=== PATIENT | male | born 1940 | race Caucasian/White ===

== ENCOUNTER 2016-10-15 15:38 | Inpatient (IN) | payer MEDICARE ==
[~2016-10-15] VITALS: Ht 175.3 cm; Wt 53.6 kg
[2016-10-15] MEDS ORDERED: VITAD1000 PO (16:04)
[2016-10-15] MEDS ORDERED: AMLO-511 PO (16:04)
[2016-10-15] MEDS ORDERED: AMIO200T44 PO ×2 (16:04)
[2016-10-15] MEDS ORDERED: MEMA5 PO (16:04)
[2016-10-15] MEDS ORDERED: LISI-661 PO (16:04)
[2016-10-15] MEDS ORDERED: LORA1TAB3 PO (16:04)
[2016-10-15] MEDS ORDERED: PANT40TA25 PO (16:04)
[2016-10-15] MEDS ORDERED: ALBU8HFA IH (16:04)
[2016-10-15] MEDS ORDERED: SODIUM CHLORIDE 0.9% 500 ML IV ONE ×2 (16:15→17:45)
[2016-10-15 16:21] LABS: GLUCOSE,POINT OF CARE 93 MG/DL (70-110)
[2016-10-15 16:33] LABS: EOSINOPHILS % (AUTO) 0.1 % (1.0-6.0); HEMATOCRIT 30.5 % (41-53); LYMPHOCYTES # (AUTO) 0.6 K/uL (1.0-4.8); LYMPHOCYTES % (AUTO) 3.8 % (22.0-44.0); MEAN CORPUSCULAR HEMOGLOBIN 33.1 pg (26.0-34.0); MEAN CORPUSCULAR HGB CONC 32.7 G/dL (31.0-37.0); MEAN CORPUSCULAR VOLUME 101 fL (80-100); MONOCYTES # (AUTO) 0.9 K/uL (0.1-1.0); MONOCYTES % (AUTO) 5.6 % (2.0-9.0); NEUTROPHILS # (AUTO) 14.7 K/uL (1.8-7.7); PLATELET COUNT (AUTO) 180 K/uL (150-450); RED BLOOD CELL COUNT(AUTO) 3.01 MIL/uL (4.50-5.90); RED CELL DISTRIBUTION WIDTH 14.9 % (11.5-14.5); WHITE BLOOD COUNT (AUTO) 16.2 K/uL (4.5-11.0)
[2016-10-15 16:34] LABS: NEUTROPHILS % (AUTO) 90.5 % (40.0-70.0)
[2016-10-15 16:43] LABS: ANION GAP 11 mmol/L (8-16); CALCIUM, TOTAL 8.5 mg/dL (8.8-10.5); CARBON DIOXIDE 27 mmol/L (22-29); CHLORIDE 116 mmol/L (98-107); GLOMERULAR FILTR. RATE CALC 49 mL/min (>60); POTASSIUM 3.3 mmol/L (3.5-5.1); SODIUM SERUM 154 mmol/L (136-145); UREA NITROGEN, BLOOD 62 mg/dL (7-18)
[2016-10-15 16:48] LABS: ALANINE AMINOTRANSFERASE 34 U/L (12-78); ALBUMIN 2.1 g/dL (3.4-5.0); ASPARTATE AMINOTRANSFERASE 17 U/L (15-37); BILIRUBIN,TOTAL 1.3 mg/dL (0.1-1.0); CREATINE KINASE, TOTAL 33 U/L (39-308); TOTAL PROTEIN, SERUM 6.5 g/dL (6.4-8.2)
[2016-10-15 16:50] LABS: INR 1.1 (0.9-1.1); PROTHROMBIN TIME 11.4 SEC (9.4-11.6)
[2016-10-15 16:54] LABS: LACTIC ACID 1.1 mmol/L (0.4-2.0)
[2016-10-15 17:18] LABS: TROPONIN I < 0.02 ng/mL (0.00-0.05)
[2016-10-15 17:24] LABS: AMMONIA 24 umol/L (11-32)
[2016-10-15] MEDS ORDERED: POTASSIUM CHL 10 MEQ/WATER 50 ML IV ONE (17:45)
[2016-10-15 17:52] LABS: B-TYPE NATRIURETIC PEPTIDE 66 pg/mL (0-100)
[2016-10-15] MEDS ORDERED: AZITHROMYCIN 500 MG/NS 250 ML IV ONE (18:00)
[2016-10-15] MEDS ORDERED: CefTRIAXone 1 GM/DEXTROSE 50 ML IV ONE (18:00)
[2016-10-15 18:18] LABS: PHOSPHORUS 3.5 mg/dL (2.5-4.9)
[2016-10-15 19:07] LABS: RBC MORPHOLOGY COMMENT ABNORMAL RBC MORPH
[2016-10-15 19:15] LABS: APPEARANCE,URINE CLOUDY (CLEAR); GLUCOSE, URINE (UA) NEGATIVE (NEGATIVE); KETONES,URINE NEGATIVE (NEGATIVE); LEUKOCYTE ESTERASE ,URINE NEGATIVE (NEGATIVE); OCCULT BLOOD,URINE NEGATIVE (NEGATIVE); PH,URINE 5.5 (5.0-8.0); PROTEIN,URINE POS 1+ (NEGATIVE)
[2016-10-15 19:36] LABS: ADD UA MICROSCOPIC NO
[2016-10-15] MEDS ORDERED: SODIUM CHLORIDE 0.9% 1,000 ML IV ONE (20:15)
[2016-10-15] MEDS ORDERED: 0.9% SODIUM CHLORIDE 10 ML SYRINGE IVP PRN (20:15)
[2016-10-15] MEDS ORDERED: ACETAMINOPHEN 325 MG TABLET PO PRN (20:15)
[2016-10-15] MEDS: IPRATROPIUM BROMIDE 0.5 MG/2.5 ML NEB SOLUTION NEB SCH (22:36)
[2016-10-15] MEDS: ALBUTEROL SULFATE 2.5 MG/0.5 ML NEB SOLUTION NEB SCH (22:36)
[2016-10-16] MEDS: ALBUTEROL SULFATE 2.5 MG/0.5 ML NEB SOLUTION NEB SCH ×2 (03:38→07:22)
[2016-10-16] MEDS: IPRATROPIUM BROMIDE 0.5 MG/2.5 ML NEB SOLUTION NEB SCH ×2 (03:38→07:22)
[2016-10-16] MEDS: SODIUM CHLORIDE 0.9% 1,000 ML IV SCH (13:54)
[2016-10-16 18:00] VITALS: BP 135/69
[2016-10-16] MEDS ORDERED: ALBUTEROL SULFATE HFA 90 MCG/PUFF 8 GM INHALER IH PRN (18:00)
[2016-10-16] MEDS: CefTRIAXone 1 GM/DEXTROSE 50 ML IV SCH (18:46)
[2016-10-16 19:18] VITALS: BP 138/70
[2016-10-16] MEDS: LORazepam 1 MG TABLET PO SCH (21:50)
[2016-10-16] MEDS ORDERED: LEVOFLOXACIN 500 MG/D5% WATER 100 ML IV ONE (23:00)
[2016-10-16 23:28] VITALS: BP 127/65
[2016-10-17] MEDS: SODIUM CHLORIDE 0.9% 1,000 ML IV SCH (03:28)
[2016-10-17 04:55] VITALS: BP 122/66
[2016-10-17 07:35] VITALS: BP 120/60
[2016-10-17 08:34] LABS: HEMATOCRIT 27.9 % (41-53); HEMOGLOBIN 9.1 g/dL (13.5-17.5); MEAN CORPUSCULAR HEMOGLOBIN 33.2 pg (26.0-34.0); MEAN CORPUSCULAR HGB CONC 32.5 G/dL (31.0-37.0); MEAN CORPUSCULAR VOLUME 102 fL (80-100); PLATELET COUNT (AUTO) 183 K/uL (150-450); RED BLOOD CELL COUNT(AUTO) 2.74 MIL/uL (4.50-5.90); RED CELL DISTRIBUTION WIDTH 15.1 % (11.5-14.5); WHITE BLOOD COUNT (AUTO) 15.8 K/uL (4.5-11.0)
[2016-10-17 08:52] LABS: ALANINE AMINOTRANSFERASE 23 U/L (12-78); ALBUMIN 1.7 g/dL (3.4-5.0); ANION GAP 9 mmol/L (8-16); ASPARTATE AMINOTRANSFERASE 16 U/L (15-37); BILIRUBIN,TOTAL 0.7 mg/dL (0.1-1.0); CALCIUM, TOTAL 7.4 mg/dL (8.8-10.5); CARBON DIOXIDE 26 mmol/L (22-29); CHLORIDE 127 mmol/L (98-107); GLOMERULAR FILTR. RATE CALC > 60 mL/min (>60); PHOSPHORUS 2.6 mg/dL (2.5-4.9); POTASSIUM 3.5 mmol/L (3.5-5.1); TOTAL PROTEIN, SERUM 4.9 g/dL (6.4-8.2); UREA NITROGEN, BLOOD 31 mg/dL (7-18)
[2016-10-17] MEDS ORDERED: AmLODIPine BESYLATE 5 MG TABLET PO SCH (09:00)
[2016-10-17] MEDS ORDERED: LISINOPRIL 10 MG TABLET PO SCH (09:00)
[2016-10-17 09:01] LABS: SODIUM SERUM 162 mmol/L (136-145)
[2016-10-17] MEDS: LORazepam 1 MG TABLET PO SCH ×2 (09:04→21:01)
[2016-10-17] MEDS: CHOLECALCIFEROL (VIT D3) 1,000 UNITS TABLET PO SCH (09:05)
[2016-10-17] MEDS: PANTOPRAZOLE SODIUM 40 MG DR TABLET PO SCH (09:05)
[2016-10-17] MEDS: MEMANTINE HCL 5 MG TABLET PO SCH (09:05)
[2016-10-17] MEDS: ENOXAPARIN SODIUM 30 MG/0.3 ML PF SYRINGE SQ SCH (09:06)
[2016-10-17 09:49] LABS: BAND NEUTROPHILS % (MANUAL) 2 % (1-5); LYMPHOCYTES % (MANUAL) 8 % (22-44); RBC MORPHOLOGY COMMENT ABNORMAL RBC MORPH; TOTAL CELLS COUNTED 100
[2016-10-17 10:50] VITALS: BP 98/52
[2016-10-17 14:57] VITALS: BP 103/54
[2016-10-17] MEDS: DEXTROSE 5%-0.45% SODIUM CHL 1,000 ML IV SCH (17:29)
[2016-10-17] MEDS: ALBUMIN HUMAN 25%-25GM/100ML 100 ML IV SCH ×2 (17:34→22:10)
[2016-10-17 19:30] LABS: ANION GAP 7 mmol/L (8-16); CARBON DIOXIDE 28 mmol/L (22-29); CHLORIDE 123 mmol/L (98-107); CREATININE 1.06 mg/dL (0.60-1.30); GLOMERULAR FILTR. RATE CALC > 60 mL/min (>60); POTASSIUM 3.7 mmol/L (3.5-5.1); SODIUM SERUM 158 mmol/L (136-145); UREA NITROGEN, BLOOD 29 mg/dL (7-18)
[2016-10-17 19:35] VITALS: BP 110/57
[2016-10-17] MEDS: CefTRIAXone 1 GM/DEXTROSE 50 ML IV SCH (21:01)
[2016-10-18] VITALS: BP 139/66
[2016-10-18] MEDS: LEVOFLOXACIN 250 MG/D5% WATER 50 ML IV SCH ×2 (00:14→23:09)
[2016-10-18] MEDS: DEXTROSE 5%-0.45% SODIUM CHL 1,000 ML IV SCH ×3 (00:14→19:42)
[2016-10-18] MEDS: ALBUMIN HUMAN 25%-25GM/100ML 100 ML IV SCH ×4 (03:57→21:51)
[2016-10-18 04:42] VITALS: BP 118/76
[2016-10-18 07:26] VITALS: BP 144/65
[2016-10-18 08:31] LABS: ANION GAP 10 mmol/L (8-16); CALCIUM, TOTAL 7.9 mg/dL (8.8-10.5); CARBON DIOXIDE 26 mmol/L (22-29); CHLORIDE 121 mmol/L (98-107); PHOSPHORUS 2.8 mg/dL (2.5-4.9); POTASSIUM 3.2 mmol/L (3.5-5.1); SODIUM SERUM 157 mmol/L (136-145); UREA NITROGEN, BLOOD 23 mg/dL (7-18)
[2016-10-18] MEDS: PANTOPRAZOLE SODIUM 40 MG DR TABLET PO SCH (08:31)
[2016-10-18] MEDS: LORazepam 1 MG TABLET PO SCH ×2 (08:31→20:05)
[2016-10-18] MEDS: CHOLECALCIFEROL (VIT D3) 1,000 UNITS TABLET PO SCH (08:31)
[2016-10-18] MEDS: ENOXAPARIN SODIUM 30 MG/0.3 ML PF SYRINGE SQ SCH (08:31)
[2016-10-18] MEDS: MEMANTINE HCL 5 MG TABLET PO SCH (08:31)
[2016-10-18 08:51] LABS: CREATININE 0.94 mg/dL (0.60-1.30); GLOMERULAR FILTR. RATE CALC > 60 mL/min (>60)
[2016-10-18 12:16] VITALS: BP 146/68
[2016-10-18 15:26] VITALS: BP 143/71
[2016-10-18] MEDS: CefTRIAXone 1 GM/DEXTROSE 50 ML IV SCH (17:41)
[2016-10-18 19:50] VITALS: BP 123/63
[2016-10-19] VITALS (7 sets, daily range): BP systolic 112–136; BP diastolic 48–83
[2016-10-19] MEDS: ALBUMIN HUMAN 25%-25GM/100ML 100 ML IV SCH ×4 (03:39→21:26)
[2016-10-19 06:52] LABS: EOSINOPHILS # (AUTO) 0.09 K/uL (0.00-0.70); EOSINOPHILS % (AUTO) 0.75 % (1.0-6.0); HEMOGLOBIN 8.3 g/dL (13.5-17.5); LYMPHOCYTES # (AUTO) 0.9 K/uL (1.0-4.8); LYMPHOCYTES % (AUTO) 7.7 % (22.0-44.0); MEAN CORPUSCULAR HEMOGLOBIN 33.5 pg (26.0-34.0); MEAN CORPUSCULAR HGB CONC 33.4 G/dL (31.0-37.0); MEAN CORPUSCULAR VOLUME 100 fL (80-100); MONOCYTES # (AUTO) 0.6 K/uL (0.1-1.0); MONOCYTES % (AUTO) 4.9 % (2.0-9.0); NEUTROPHILS # (AUTO) 10.4 K/uL (1.8-7.7); PLATELET COUNT (AUTO) 162 K/uL (150-450); RED BLOOD CELL COUNT(AUTO) 2.49 MIL/uL (4.50-5.90); RED CELL DISTRIBUTION WIDTH 15.2 % (11.5-14.5); WHITE BLOOD COUNT (AUTO) 12.1 K/uL (4.5-11.0)
[2016-10-19 06:57] LABS: NEUTROPHILS % (AUTO) 86.6 % (40.0-70.0); RBC MORPHOLOGY COMMENT ABNORMAL RBC MORPH
[2016-10-19 07:04] LABS: ANION GAP 8 mmol/L (8-16); CALCIUM, TOTAL 7.6 mg/dL (8.8-10.5); CARBON DIOXIDE 27 mmol/L (22-29); CHLORIDE 115 mmol/L (98-107); GLOMERULAR FILTR. RATE CALC > 60 mL/min (>60); PHOSPHORUS 2.9 mg/dL (2.5-4.9); POTASSIUM 3.2 mmol/L (3.5-5.1); SODIUM SERUM 150 mmol/L (136-145); UREA NITROGEN, BLOOD 21 mg/dL (7-18)
[2016-10-19] MEDS ORDERED: MAGNESIUM SULFATE 1 GM in DEXTROSE 5%-WATER 50 ML IV ONE (08:00)
[2016-10-19] MEDS: LORazepam 1 MG TABLET PO SCH ×2 (09:00→20:21)
[2016-10-19] MEDS ORDERED: POTASSIUM CHLORIDE 20 MEQ ER TABLET PO PRN (09:30)
[2016-10-19] MEDS: CHOLECALCIFEROL (VIT D3) 1,000 UNITS TABLET PO SCH (11:22)
[2016-10-19] MEDS: PANTOPRAZOLE SODIUM 40 MG DR TABLET PO SCH (11:24)
[2016-10-19] MEDS: MEMANTINE HCL 5 MG TABLET PO SCH (11:24)
[2016-10-19] MEDS: ENOXAPARIN SODIUM 30 MG/0.3 ML PF SYRINGE SQ SCH (11:25)
[2016-10-19] MEDS: DEXTROSE 5%-0.45% SODIUM CHL 1,000 ML IV SCH (11:30)
[2016-10-19] MEDS ORDERED: POTASSIUM CHLORIDE 20 MEQ ER TABLET PO ONE (13:30)
[2016-10-19] MEDS: CefTRIAXone 1 GM/DEXTROSE 50 ML IV SCH (19:02)
[2016-10-19] MEDS ORDERED: 0.9% SODIUM CHLORIDE 10 ML SYRINGE IVP PRN (22:15)
[2016-10-19] MEDS: LEVOFLOXACIN 250 MG/D5% WATER 50 ML IV SCH (22:34)
[2016-10-20] MEDS: DEXTROSE 5%-0.45% SODIUM CHL 1,000 ML IV SCH ×4 (01:49→22:57)
[2016-10-20] MEDS: ALBUMIN HUMAN 25%-25GM/100ML 100 ML IV SCH ×2 (04:23→10:23)
[2016-10-20 04:45] VITALS: BP 120/66
[2016-10-20 07:23] LABS: ALANINE AMINOTRANSFERASE 20 U/L (12-78); ALBUMIN 4.3 g/dL (3.4-5.0); ANION GAP 10 mmol/L (8-16); ASPARTATE AMINOTRANSFERASE 21 U/L (15-37); BILIRUBIN,TOTAL 0.9 mg/dL (0.1-1.0); CALCIUM, TOTAL 8.3 mg/dL (8.8-10.5); CARBON DIOXIDE 26 mmol/L (22-29); CHLORIDE 111 mmol/L (98-107); CREATININE 0.89 mg/dL (0.60-1.30); GLOMERULAR FILTR. RATE CALC > 60 mL/min (>60); PHOSPHORUS 2.6 mg/dL (2.5-4.9); SODIUM SERUM 147 mmol/L (136-145); TOTAL PROTEIN, SERUM 6.9 g/dL (6.4-8.2); UREA NITROGEN, BLOOD 21 mg/dL (7-18)
[2016-10-20 07:47] VITALS: BP 124/65
[2016-10-20] MEDS: LORazepam 1 MG TABLET PO SCH ×2 (09:00→21:00)
[2016-10-20] MEDS: PANTOPRAZOLE SODIUM 40 MG DR TABLET PO SCH (10:17)
[2016-10-20] MEDS: CHOLECALCIFEROL (VIT D3) 1,000 UNITS TABLET PO SCH (10:17)
[2016-10-20] MEDS: MEMANTINE HCL 5 MG TABLET PO SCH (10:17)
[2016-10-20] MEDS: ENOXAPARIN SODIUM 30 MG/0.3 ML PF SYRINGE SQ SCH (10:20)
[2016-10-20 11:12] VITALS: BP 106/54
[2016-10-20 15:00] VITALS: BP 108/56
[2016-10-20] MEDS: CefTRIAXone 1 GM/DEXTROSE 50 ML IV SCH (18:32)
[2016-10-20 19:36] VITALS: BP 96/54
[2016-10-20] MEDS: LEVOFLOXACIN 250 MG/D5% WATER 50 ML IV SCH (23:40)
[2016-10-21 00:12] VITALS: BP 113/59
[2016-10-21 04:01] VITALS: BP 115/57
[2016-10-21 07:53] LABS: ANION GAP 10 mmol/L (8-16); CALCIUM, TOTAL 7.7 mg/dL (8.8-10.5); CARBON DIOXIDE 24 mmol/L (22-29); CHLORIDE 107 mmol/L (98-107); CREATININE 0.93 mg/dL (0.60-1.30); GLOMERULAR FILTR. RATE CALC > 60 mL/min (>60); PHOSPHORUS 2.7 mg/dL (2.5-4.9); SODIUM SERUM 141 mmol/L (136-145); UREA NITROGEN, BLOOD 20 mg/dL (7-18)
[2016-10-21 08:02] VITALS: BP 124/65
[2016-10-21] MEDS: DEXTROSE 5%-0.45% SODIUM CHL 1,000 ML IV SCH (10:10)
[2016-10-21] MEDS: CHOLECALCIFEROL (VIT D3) 1,000 UNITS TABLET PO SCH (10:11)
[2016-10-21] MEDS: MEMANTINE HCL 5 MG TABLET PO SCH (10:11)
[2016-10-21] MEDS: PANTOPRAZOLE SODIUM 40 MG DR TABLET PO SCH (10:11)
[2016-10-21] MEDS: LORazepam 1 MG TABLET PO SCH ×2 (10:11→21:04)
[2016-10-21] MEDS: ENOXAPARIN SODIUM 30 MG/0.3 ML PF SYRINGE SQ SCH (10:11)
[2016-10-21 16:31] VITALS: BP 103/63
[2016-10-21 20:24] VITALS: BP 133/66
[2016-10-22] VITALS (8 sets, daily range): BP systolic 88–122; BP diastolic 39–64
[2016-10-22] MEDS ORDERED: SODIUM CHLORIDE 0.9% 50 ML ONE (00:08)
[2016-10-22] MEDS: LEVOFLOXACIN 250 MG/D5% WATER 50 ML IV SCH ×2 (00:12→22:33)
[2016-10-22 07:20] LABS: EOSINOPHILS % (AUTO) 0.5 % (1.0-6.0); HEMATOCRIT 26.4 % (41-53); HEMOGLOBIN 8.8 g/dL (13.5-17.5); LYMPHOCYTES # (AUTO) 0.9 K/uL (1.0-4.8); MEAN CORPUSCULAR HGB CONC 33.1 G/dL (31.0-37.0); MEAN CORPUSCULAR VOLUME 100 fL (80-100); MONOCYTES # (AUTO) 0.8 K/uL (0.1-1.0); MONOCYTES % (AUTO) 7.2 % (2.0-9.0); NEUTROPHILS # (AUTO) 8.7 K/uL (1.8-7.7); NEUTROPHILS % (AUTO) 83.3 % (40.0-70.0); PLATELET COUNT (AUTO) 207 K/uL (150-450); RED BLOOD CELL COUNT(AUTO) 2.65 MIL/uL (4.50-5.90); WHITE BLOOD COUNT (AUTO) 10.5 K/uL (4.5-11.0)
[2016-10-22 07:36] LABS: ANION GAP 10 mmol/L (8-16); CALCIUM, TOTAL 7.8 mg/dL (8.8-10.5); CARBON DIOXIDE 25 mmol/L (22-29); CHLORIDE 106 mmol/L (98-107); CREATININE 1.02 mg/dL (0.60-1.30); GLOMERULAR FILTR. RATE CALC > 60 mL/min (>60); PHOSPHORUS 2.7 mg/dL (2.5-4.9); POTASSIUM 4.1 mmol/L (3.5-5.1); SODIUM SERUM 141 mmol/L (136-145); UREA NITROGEN, BLOOD 21 mg/dL (7-18)
[2016-10-22] MEDS: PANTOPRAZOLE SODIUM 40 MG DR TABLET PO SCH (09:37)
[2016-10-22] MEDS: LORazepam 1 MG TABLET PO SCH ×2 (09:38→20:30)
[2016-10-22] MEDS: CHOLECALCIFEROL (VIT D3) 1,000 UNITS TABLET PO SCH (09:38)
[2016-10-22] MEDS: ENOXAPARIN SODIUM 30 MG/0.3 ML PF SYRINGE SQ SCH (09:38)
[2016-10-22] MEDS: MEMANTINE HCL 5 MG TABLET PO SCH (09:38)
[2016-10-22] MEDS: IRON SUCROSE COMPLEX 100 MG in SODIUM CHLORIDE 0.9% 100 ML IV SCH (09:47)
[2016-10-22] MEDS ORDERED: IOVERSOL 320 MG/ML 100 ML VIAL ONE (17:36)
[2016-10-22] MEDS ORDERED: SODIUM CHLORIDE 0.9% 100 ML ONE (22:38)
[2016-10-23] VITALS (10 sets, daily range): BP systolic 102–136; BP diastolic 50–71
[2016-10-23 06:15] LABS: BASOPHILS % (AUTO) 0.2 % (0.0-2.0); EOSINOPHILS % (AUTO) 0.6 % (1.0-6.0); HEMATOCRIT 25.6 % (41-53); HEMOGLOBIN 8.5 g/dL (13.5-17.5); LYMPHOCYTES % (AUTO) 9.8 % (22.0-44.0); MEAN CORPUSCULAR HEMOGLOBIN 32.8 pg (26.0-34.0); MEAN CORPUSCULAR VOLUME 99 fL (80-100); MONOCYTES # (AUTO) 0.9 K/uL (0.1-1.0); MONOCYTES % (AUTO) 8.1 % (2.0-9.0); NEUTROPHILS # (AUTO) 8.7 K/uL (1.8-7.7); NEUTROPHILS % (AUTO) 81.3 % (40.0-70.0); PLATELET COUNT (AUTO) 219 K/uL (150-450); RED BLOOD CELL COUNT(AUTO) 2.58 MIL/uL (4.50-5.90); WHITE BLOOD COUNT (AUTO) 10.7 K/uL (4.5-11.0)
[2016-10-23 06:36] LABS: ALANINE AMINOTRANSFERASE 25 U/L (12-78); ALBUMIN 3.2 g/dL (3.4-5.0); ANION GAP 8 mmol/L (8-16); ASPARTATE AMINOTRANSFERASE 21 U/L (15-37); BILIRUBIN,TOTAL 0.5 mg/dL (0.1-1.0); CALCIUM, TOTAL 7.8 mg/dL (8.8-10.5); CARBON DIOXIDE 24 mmol/L (22-29); CHLORIDE 106 mmol/L (98-107); CREATININE 0.97 mg/dL (0.60-1.30); GLOMERULAR FILTR. RATE CALC > 60 mL/min (>60); POTASSIUM 3.8 mmol/L (3.5-5.1); SODIUM SERUM 138 mmol/L (136-145); TOTAL PROTEIN, SERUM 6.5 g/dL (6.4-8.2); UREA NITROGEN, BLOOD 20 mg/dL (7-18)
[2016-10-23] MEDS: LORazepam 1 MG TABLET PO SCH ×2 (09:00→20:36)
[2016-10-23] MEDS: ENOXAPARIN SODIUM 30 MG/0.3 ML PF SYRINGE SQ SCH (09:00)
[2016-10-23] MEDS: IRON SUCROSE COMPLEX 100 MG in SODIUM CHLORIDE 0.9% 100 ML IV SCH (09:32)
[2016-10-23] MEDS ORDERED: BARIUM SULFATE 0.1% SUSPENSION 450 ML BOTTLE ONE (10:53)
[2016-10-23 12:04] LABS: INR 1.1 (0.9-1.1)
[2016-10-23] MEDS ORDERED: IOVERSOL 350 MG/ML 100 ML VIAL ONE (13:50)
[2016-10-23] MEDS: MEMANTINE HCL 5 MG TABLET PO SCH (15:47)
[2016-10-23] MEDS: CHOLECALCIFEROL (VIT D3) 1,000 UNITS TABLET PO SCH (15:47)
[2016-10-23] MEDS: PANTOPRAZOLE SODIUM 40 MG DR TABLET PO SCH (15:47)
[2016-10-23] MEDS: LEVOFLOXACIN 250 MG/D5% WATER 50 ML IV SCH (23:17)
[2016-10-23] MEDS ORDERED: SODIUM CHLORIDE 0.9% 100 ML ONE (23:20)
[2016-10-24 04:03] VITALS: BP 131/63
[2016-10-24 07:19] VITALS: BP 111/61
[2016-10-24 07:23] LABS: BASOPHILS # (AUTO) 0.02 K/uL (0.00-0.20); BASOPHILS % (AUTO) 0.2 % (0.0-2.0); EOSINOPHILS # (AUTO) 0.04 K/uL (0.00-0.70); EOSINOPHILS % (AUTO) 0.38 % (1.0-6.0); HEMATOCRIT 25.2 % (41-53); HEMOGLOBIN 8.5 g/dL (13.5-17.5); LYMPHOCYTES # (AUTO) 0.7 K/uL (1.0-4.8); MEAN CORPUSCULAR HEMOGLOBIN 32.8 pg (26.0-34.0); MEAN CORPUSCULAR HGB CONC 33.7 G/dL (31.0-37.0); MEAN CORPUSCULAR VOLUME 97 fL (80-100); MONOCYTES # (AUTO) 0.8 K/uL (0.1-1.0); MONOCYTES % (AUTO) 8.9 % (2.0-9.0); NEUTROPHILS # (AUTO) 7.6 K/uL (1.8-7.7); NEUTROPHILS % (AUTO) 82.5 % (40.0-70.0); PLATELET COUNT (AUTO) 236 K/uL (150-450); RED BLOOD CELL COUNT(AUTO) 2.59 MIL/uL (4.50-5.90); RED CELL DISTRIBUTION WIDTH 13.3 % (11.5-14.5); WHITE BLOOD COUNT (AUTO) 9.2 K/uL (4.5-11.0)
[2016-10-24 07:32] LABS: ALANINE AMINOTRANSFERASE 26 U/L (12-78); ALBUMIN 3.1 g/dL (3.4-5.0); ANION GAP 12 mmol/L (8-16); ASPARTATE AMINOTRANSFERASE 18 U/L (15-37); BILIRUBIN,TOTAL 0.6 mg/dL (0.1-1.0); CALCIUM, TOTAL 8.6 mg/dL (8.8-10.5); CARBON DIOXIDE 23 mmol/L (22-29); CHLORIDE 104 mmol/L (98-107); CREATININE 0.94 mg/dL (0.60-1.30); GLOMERULAR FILTR. RATE CALC > 60 mL/min (>60); POTASSIUM 4.1 mmol/L (3.5-5.1); SODIUM SERUM 139 mmol/L (136-145); TOTAL PROTEIN, SERUM 6.9 g/dL (6.4-8.2); UREA NITROGEN, BLOOD 16 mg/dL (7-18)
[2016-10-24] MEDS ORDERED: SODIUM CHLORIDE 0.9% 100 ML ONE (08:29)
[2016-10-24] MEDS: IRON SUCROSE COMPLEX 100 MG in SODIUM CHLORIDE 0.9% 100 ML IV SCH (08:32)
[2016-10-24] MEDS: LORazepam 1 MG TABLET PO SCH ×2 (09:00→21:24)
[2016-10-24 10:58] VITALS: BP 106/53
[2016-10-24] MEDS ORDERED: BARIUM SULFATE 0.1% SUSPENSION 450 ML BOTTLE ONE (11:40)
[2016-10-24] MEDS ORDERED: IOVERSOL 350 MG/ML 150 ML VIAL ONE (11:41)
[2016-10-24] MEDS: MEMANTINE HCL 5 MG TABLET PO SCH (15:46)
[2016-10-24] MEDS: CHOLECALCIFEROL (VIT D3) 1,000 UNITS TABLET PO SCH (15:47)
[2016-10-24] MEDS: PANTOPRAZOLE SODIUM 40 MG DR TABLET PO SCH (15:47)
[2016-10-24 15:49] VITALS: BP 112/59
[2016-10-24 21:22] VITALS: BP 114/65
[2016-10-24] MEDS: LEVOFLOXACIN 250 MG/D5% WATER 50 ML IV SCH (23:57)
[2016-10-25] VITALS (7 sets, daily range): BP systolic 103–124; BP diastolic 52–72
[2016-10-25 07:12] LABS: TOTAL PROTEIN, SERUM 6.8 g/dL (6.4-8.2)
[2016-10-25] MEDS: CHOLECALCIFEROL (VIT D3) 1,000 UNITS TABLET PO SCH (08:25)
[2016-10-25] MEDS: MEMANTINE HCL 5 MG TABLET PO SCH (08:25)
[2016-10-25] MEDS: PANTOPRAZOLE SODIUM 40 MG DR TABLET PO SCH (08:25)
[2016-10-25] MEDS: LORazepam 1 MG TABLET PO SCH ×2 (08:25→20:33)
[2016-10-25] MEDS ORDERED: SODIUM BICARBONATE 50 MEQ/50 ML VIAL ONE (11:58)
[2016-10-25] MEDS ORDERED: LIDOCAINE HCL/PF 1% 30 ML VIAL ONE (11:58)
[2016-10-25 13:35] LABS: APPEARANCE,UNSPUN,BODY FLUID HAZY (CLEAR); COLOR,BODY FLUID YELLOW (LT YELLOW)
[2016-10-26] VITALS (12 sets, daily range): BP systolic 99–136; BP diastolic 44–74
[2016-10-26] MEDS: LEVOFLOXACIN 250 MG/D5% WATER 50 ML IV SCH ×2 (00:09→23:07)
[2016-10-26] MEDS: LORazepam 1 MG TABLET PO SCH ×2 (09:00→20:20)
[2016-10-26] MEDS ORDERED: MIDAZOLAM HCL 2 MG/2 ML VIAL ONE (10:43)
[2016-10-26] MEDS ORDERED: FentaNYL CITRATE-PF 100 MCG/2 ML VIAL ONE (10:43)
[2016-10-26] MEDS ORDERED: SODIUM BICARBONATE 50 MEQ/50 ML VIAL ONE (10:43)
[2016-10-26] MEDS ORDERED: LIDOCAINE HCL/PF 1% 30 ML VIAL ONE (10:44)
[2016-10-26] MEDS: CHOLECALCIFEROL (VIT D3) 1,000 UNITS TABLET PO SCH (13:14)
[2016-10-26] MEDS: PANTOPRAZOLE SODIUM 40 MG DR TABLET PO SCH (13:14)
[2016-10-26] MEDS: MEMANTINE HCL 5 MG TABLET PO SCH (13:14)
[2016-10-26 14:34] LABS: APPEARANCE,UNSPUN,BODY FLUID HAZY (CLEAR)
[2016-10-26 14:35] LABS: COLOR,BODY FLUID YELLOW (LT YELLOW)
[2016-10-26 14:40] LABS: BODY FLUID HCT 0.3 %
[2016-10-26] MEDS ORDERED: SODIUM CHLORIDE 0.9% 50 ML ONE (23:09)
[2016-10-27 00:03] VITALS: BP 128/62
[2016-10-27 00:09] LABS: TOTAL PROTEIN,BODY FLUID,REF 4.4 g/dL
[2016-10-27 07:21] VITALS: BP 140/67
[2016-10-27] MEDS: MEMANTINE HCL 5 MG TABLET PO SCH (08:29)
[2016-10-27] MEDS: CHOLECALCIFEROL (VIT D3) 1,000 UNITS TABLET PO SCH (08:29)
[2016-10-27] MEDS: PANTOPRAZOLE SODIUM 40 MG DR TABLET PO SCH (08:29)
[2016-10-27] MEDS: LORazepam 1 MG TABLET PO SCH ×2 (08:29→21:00)
[2016-10-27 11:04] VITALS: BP 111/59
[2016-10-27 15:09] VITALS: BP 114/61
[2016-10-27 20:13] VITALS: BP 127/67
[2016-10-27] MEDS: ACETAMINOPHEN 325 MG TABLET PO PRN (21:53)
[2016-10-27] MEDS ORDERED: SODIUM CHLORIDE 0.9% 250 ML IV ONE (22:07)
[2016-10-27] MEDS: PIPERACILLIN/TAZO 3.375 GM/D5W 50 ML IV SCH (22:08)
[2016-10-27 23:31] LABS: APPEARANCE,URINE CLEAR (CLEAR); GLUCOSE, URINE (UA) NEGATIVE (NEGATIVE); KETONES,URINE NEGATIVE (NEGATIVE); LEUKOCYTE ESTERASE ,URINE NEGATIVE (NEGATIVE); OCCULT BLOOD,URINE MODERATE (NEGATIVE); PH,URINE 6.5 (5.0-8.0); PROTEIN,URINE TRACE (NEGATIVE)
[2016-10-27 23:34] LABS: ADD UA MICROSCOPIC YES
[2016-10-27] MEDS: LEVOFLOXACIN 250 MG/D5% WATER 50 ML IV SCH (23:46)
[2016-10-28] VITALS (7 sets, daily range): BP systolic 100–126; BP diastolic 49–77
[2016-10-28 00:04] LABS: WBC,URINE 0-2 /HPF (0-5)
[2016-10-28] MEDS: PIPERACILLIN/TAZO 3.375 GM/D5W 50 ML IV SCH ×4 (04:35→20:44)
[2016-10-28] MEDS: LORazepam 1 MG TABLET PO SCH ×2 (09:00→20:44)
[2016-10-28] MEDS: CHOLECALCIFEROL (VIT D3) 1,000 UNITS TABLET PO SCH (09:23)
[2016-10-28] MEDS: MEMANTINE HCL 5 MG TABLET PO SCH (09:23)
[2016-10-28] MEDS: MULTIVITAMINS WITH MINERALS, THERAPEUTIC TABLET PO SCH (09:23)
[2016-10-28] MEDS: PANTOPRAZOLE SODIUM 40 MG DR TABLET PO SCH (12:29)
[2016-10-28] MEDS: LEVOFLOXACIN 250 MG/D5% WATER 50 ML IV SCH (22:40)
[2016-10-29] VITALS (7 sets, daily range): BP systolic 91–136; BP diastolic 49–76
[2016-10-29] MEDS: PIPERACILLIN/TAZO 3.375 GM/D5W 50 ML IV SCH (04:34)
[2016-10-29 07:58] LABS: CALCIUM, TOTAL 8.7 mg/dL (8.8-10.5); CREATININE 1.29 mg/dL (0.60-1.30); POTASSIUM 4.2 mmol/L (3.5-5.1)
[2016-10-29] MEDS: LORazepam 1 MG TABLET PO SCH ×2 (09:00→21:05)
[2016-10-29] MEDS ORDERED: IOVERSOL 320 MG/ML 100 ML VIAL ONE (10:29)
[2016-10-29 10:35] LABS: INR 1.1 (0.9-1.1); PROTHROMBIN TIME 11.2 SEC (9.4-11.6)
[2016-10-29] MEDS: PIPERACILLIN SODIUM/TAZOBACTAM 2.25 GM in DEXTROSE 5%-WATER 50 ML IV SCH ×3 (11:33→21:06)
[2016-10-29] MEDS: PANTOPRAZOLE SODIUM 40 MG DR TABLET PO SCH (17:13)
[2016-10-29] MEDS: MULTIVITAMINS WITH MINERALS, THERAPEUTIC TABLET PO SCH (17:13)
[2016-10-29] MEDS: CHOLECALCIFEROL (VIT D3) 1,000 UNITS TABLET PO SCH (17:14)
[2016-10-29] MEDS: MEMANTINE HCL 5 MG TABLET PO SCH (17:14)
[2016-10-29] MEDS: LEVOFLOXACIN 250 MG/D5% WATER 50 ML IV SCH (23:16)
[2016-10-29] MEDS: ACETAMINOPHEN 325 MG TABLET PO PRN (23:17)
[2016-10-30] MEDS ORDERED: SODIUM CHLORIDE 0.9% 250 ML IV ONE (00:22)
[2016-10-30 03:14] LABS: GLUCOSE, URINE (UA) NEGATIVE (NEGATIVE); KETONES,URINE NEGATIVE (NEGATIVE); LEUKOCYTE ESTERASE ,URINE NEGATIVE (NEGATIVE); OCCULT BLOOD,URINE SMALL (NEGATIVE); PROTEIN,URINE POS 1+ (NEGATIVE)
[2016-10-30 03:17] LABS: APPEARANCE,URINE SLIGHTLY CLOUDY (CLEAR)
[2016-10-30 03:25] LABS: URIC ACID CRYSTALS,URINE Moderate /LPF (None Seen); WBC,URINE 0-2 /HPF (0-5)
[2016-10-30 04:46] VITALS: BP 102/58
[2016-10-30] MEDS: PIPERACILLIN SODIUM/TAZOBACTAM 2.25 GM in DEXTROSE 5%-WATER 50 ML IV SCH ×4 (05:04→22:47)
[2016-10-30 07:19] VITALS: BP 145/73
[2016-10-30 08:11] LABS: CALCIUM, TOTAL 8.9 mg/dL (8.8-10.5); CREATININE 1.51 mg/dL (0.60-1.30); POTASSIUM 4.4 mmol/L (3.5-5.1)
[2016-10-30] MEDS: LORazepam 1 MG TABLET PO SCH ×2 (09:17→21:00)
[2016-10-30] MEDS: PANTOPRAZOLE SODIUM 40 MG DR TABLET PO SCH (09:18)
[2016-10-30] MEDS: MULTIVITAMINS WITH MINERALS, THERAPEUTIC TABLET PO SCH (09:18)
[2016-10-30] MEDS: MEMANTINE HCL 5 MG TABLET PO SCH (09:18)
[2016-10-30] MEDS: CHOLECALCIFEROL (VIT D3) 1,000 UNITS TABLET PO SCH (09:18)
[2016-10-30 11:56] VITALS: BP 102/52
[2016-10-30 16:08] VITALS: BP 107/47
[2016-10-30] MEDS: ACETAMINOPHEN 325 MG TABLET PO PRN (18:09)
[2016-10-30 19:58] VITALS: BP 91/56
[2016-10-30] MEDS: LEVOFLOXACIN 250 MG/D5% WATER 50 ML IV SCH (23:17)
[2016-10-31] VITALS (10 sets, daily range): BP systolic 93–120; BP diastolic 36–92
[2016-10-31] MEDS: PIPERACILLIN SODIUM/TAZOBACTAM 2.25 GM in DEXTROSE 5%-WATER 50 ML IV SCH ×4 (03:24→21:31)
[2016-10-31 06:45] LABS: CALCIUM, TOTAL 8.9 mg/dL (8.8-10.5); CREATININE 1.6 mg/dL (0.60-1.30); POTASSIUM 4.6 mmol/L (3.5-5.1)
[2016-10-31] MEDS ORDERED: POLYETHYLENE GLYCOL 3350 17 GM PACKET PO ONE (07:00)
[2016-10-31 07:36] LABS: BASOPHILS % (AUTO) 0.3 % (0.0-2.0); EOSINOPHILS % (AUTO) 0 % (1.0-6.0); HEMATOCRIT 28.6 % (41-53); HEMOGLOBIN 9.2 g/dL (13.5-17.5); LYMPHOCYTES # (AUTO) 1.8 K/uL (1.0-4.8); LYMPHOCYTES % (AUTO) 13.5 % (22.0-44.0); MEAN CORPUSCULAR HEMOGLOBIN 31.7 pg (26.0-34.0); MEAN CORPUSCULAR HGB CONC 32.3 G/dL (31.0-37.0); MEAN CORPUSCULAR VOLUME 98 fL (80-100); MONOCYTES % (AUTO) 7.6 % (2.0-9.0); NEUTROPHILS # (AUTO) 10.2 K/uL (1.8-7.7); NEUTROPHILS % (AUTO) 78.6 % (40.0-70.0); PLATELET COUNT (AUTO) 189 K/uL (150-450); RED BLOOD CELL COUNT(AUTO) 2.91 MIL/uL (4.50-5.90); RED CELL DISTRIBUTION WIDTH 13.8 % (11.5-14.5)
[2016-10-31 07:44] LABS: ALBUMIN 2.9 g/dL (3.4-5.0); BILIRUBIN,TOTAL 0.5 mg/dL (0.1-1.0); TOTAL PROTEIN, SERUM 7.6 g/dL (6.4-8.2)
[2016-10-31] MEDS ORDERED: AMIODARONE HCL 150 MG in DEXTROSE 5%-WATER 97 ML IV ONE (07:50)
[2016-10-31] MEDS ORDERED: AMIODARONE HCL 360 MG in DEXTROSE 5%-WATER 242.8 ML IV ONE (08:00)
[2016-10-31] MEDS ORDERED: DIGOXIN 250 MCG/ML 2 ML AMP IVP ONE ×2 (08:00→09:30)
[2016-10-31 08:46] LABS: MAGNESIUM 2.4 mg/dL (1.80-2.40)
[2016-10-31] MEDS: MEMANTINE HCL 5 MG TABLET PO SCH (09:00)
[2016-10-31] MEDS: LORazepam 1 MG TABLET PO SCH ×2 (09:00→20:25)
[2016-10-31] MEDS: MULTIVITAMINS WITH MINERALS, THERAPEUTIC TABLET PO SCH (09:00)
[2016-10-31] MEDS: CHOLECALCIFEROL (VIT D3) 1,000 UNITS TABLET PO SCH (09:00)
[2016-10-31] MEDS: PANTOPRAZOLE SODIUM 40 MG DR TABLET PO SCH (09:00)
[2016-10-31] MEDS ORDERED: AMIODARONE HCL 540 MG in DEXTROSE 5%-WATER 239.2 ML IV ONE (14:00)
[2016-10-31] MEDS: FERROUS SULFATE 325 MG EC TABLET PO SCH (18:16)
[2016-10-31] MEDS: OXYGEN THERAPY IH SCH (20:25)
[2016-10-31] MEDS ORDERED: 0.9% SODIUM CHLORIDE 5 ML NEB SOLUTION NEB ONE (21:25)
[2016-10-31] MEDS: ALBUTEROL SULFATE 2.5 MG/0.5 ML NEB SOLUTION NEB SCH (21:48)
[2016-10-31] MEDS: IPRATROPIUM BROMIDE 0.5 MG/2.5 ML NEB SOLUTION NEB SCH (21:49)
[2016-11-01] MEDS: PIPERACILLIN SODIUM/TAZOBACTAM 2.25 GM in DEXTROSE 5%-WATER 50 ML IV SCH ×4 (03:33→21:31)
[2016-11-01 04:00] VITALS: BP 108/48
[2016-11-01 06:30] LABS: BASOPHILS % (AUTO) 0.2 % (0.0-2.0); EOSINOPHILS % (AUTO) 0 % (1.0-6.0); HEMATOCRIT 29.2 % (41-53); HEMOGLOBIN 9.4 g/dL (13.5-17.5); LYMPHOCYTES # (AUTO) 1.2 K/uL (1.0-4.8); LYMPHOCYTES % (AUTO) 11.4 % (22.0-44.0); MEAN CORPUSCULAR HEMOGLOBIN 31.6 pg (26.0-34.0); MEAN CORPUSCULAR HGB CONC 32.1 G/dL (31.0-37.0); MEAN CORPUSCULAR VOLUME 98 fL (80-100); MONOCYTES # (AUTO) 0.9 K/uL (0.1-1.0); MONOCYTES % (AUTO) 8.6 % (2.0-9.0); NEUTROPHILS # (AUTO) 8.7 K/uL (1.8-7.7); NEUTROPHILS % (AUTO) 79.8 % (40.0-70.0); PLATELET COUNT (AUTO) 182 K/uL (150-450); RED BLOOD CELL COUNT(AUTO) 2.98 MIL/uL (4.50-5.90); RED CELL DISTRIBUTION WIDTH 14.1 % (11.5-14.5); WHITE BLOOD COUNT (AUTO) 10.9 K/uL (4.5-11.0)
[2016-11-01 06:57] LABS: ALBUMIN 2.6 g/dL (3.4-5.0); BILIRUBIN,TOTAL 0.5 mg/dL (0.1-1.0); CALCIUM, TOTAL 8.9 mg/dL (8.8-10.5); CREATININE 1.44 mg/dL (0.60-1.30); POTASSIUM 3.6 mmol/L (3.5-5.1); TOTAL PROTEIN, SERUM 7.6 g/dL (6.4-8.2)
[2016-11-01 07:16] VITALS: BP 97/51
[2016-11-01] MEDS: FERROUS SULFATE 325 MG EC TABLET PO SCH ×2 (08:00→18:00)
[2016-11-01] MEDS: MULTIVITAMINS WITH MINERALS, THERAPEUTIC TABLET PO SCH (08:37)
[2016-11-01] MEDS: MEMANTINE HCL 5 MG TABLET PO SCH (08:37)
[2016-11-01] MEDS: LORazepam 1 MG TABLET PO SCH ×2 (08:38→21:30)
[2016-11-01] MEDS: CHOLECALCIFEROL (VIT D3) 1,000 UNITS TABLET PO SCH (08:38)
[2016-11-01] MEDS: AMIODARONE HCL 750 MG in DEXTROSE 5%-WATER 485 ML IV SCH (08:42)
[2016-11-01] MEDS: OXYGEN THERAPY IH SCH ×2 (08:42→20:24)
[2016-11-01] MEDS: PANTOPRAZOLE SODIUM 40 MG DR TABLET PO SCH (08:49)
[2016-11-01] MEDS: IPRATROPIUM BROMIDE 0.5 MG/2.5 ML NEB SOLUTION NEB SCH ×4 (08:55→20:24)
[2016-11-01] MEDS: ALBUTEROL SULFATE 2.5 MG/0.5 ML NEB SOLUTION NEB SCH ×4 (08:55→20:23)
[2016-11-01 10:32] LABS: ABG BASE EXCESS -4.8 mmol/L (-2.0-3.0); ABG HCO3 20.9 mmol/L (22.0-26.0); TEMPERATURE, FAHRENHEIT, BG 98.1 FAHREN (96.0-98.6)
[2016-11-01 10:48] LABS: ABG A-A DIFF O2 172.6 mmHg (10-20.0); ABG OXYHEMOGLOBIN 81.7 % (94.0-100.0); ABG PCO2 30 mmHg (35-45); ABG PH 7.433 (7.35-7.450)
[2016-11-01 11:08] LABS: ALLEN TEST, BLOOD GAS Positive
[2016-11-01 11:18] VITALS: BP 107/43
[2016-11-01 13:09] LABS: ABG A-A DIFF O2 187.3 mmHg (10-20.0); ABG BASE EXCESS -2.1 mmol/L (-2.0-3.0); ABG HCO3 23.4 mmol/L (22.0-26.0); ABG PCO2 28 mmHg (35-45); ALLEN TEST, BLOOD GAS Positive; TEMPERATURE, FAHRENHEIT, BG 98.6 FAHREN (96.0-98.6)
[2016-11-01 13:10] LABS: IPAP, BG 16 cm H2O
[2016-11-01 15:41] VITALS: BP 144/49
[2016-11-01] MEDS: ACETAMINOPHEN 325 MG TABLET PO PRN (16:32)
[2016-11-01] MEDS ORDERED: DEXTROSE 50%-WATER 25 GM/50 ML SYRINGE IVP PRN (19:00)
[2016-11-01 19:51] VITALS: BP 97/57
[2016-11-01 23:44] VITALS: BP 115/57
[2016-11-02] MEDS: INSULIN REGULAR, HUMAN 100 UNITS/ML SQ PRN ×3 (00:42→17:41)
[2016-11-02] MEDS ORDERED: SODIUM CHLORIDE 0.9% 250 ML IV ONE (03:45)
[2016-11-02] MEDS: PIPERACILLIN SODIUM/TAZOBACTAM 2.25 GM in DEXTROSE 5%-WATER 50 ML IV SCH ×4 (03:48→22:28)
[2016-11-02 04:51] VITALS: BP 103/61
[2016-11-02] MEDS: LANSOPRAZOLE 30 MG SOLUBLE TABLET NG SCH (05:33)
[2016-11-02 07:46] VITALS: BP 113/55
[2016-11-02] MEDS: AMIODARONE HCL 750 MG in DEXTROSE 5%-WATER 485 ML IV SCH (08:00)
[2016-11-02] MEDS: ALBUTEROL SULFATE 2.5 MG/0.5 ML NEB SOLUTION NEB SCH ×4 (08:31→20:26)
[2016-11-02] MEDS: IPRATROPIUM BROMIDE 0.5 MG/2.5 ML NEB SOLUTION NEB SCH ×4 (08:31→20:26)
[2016-11-02] MEDS: OXYGEN THERAPY IH SCH ×2 (08:31→20:05)
[2016-11-02] MEDS ORDERED: AMIODARONE HCL 200 MG TABLET PO SCH (09:00)
[2016-11-02] MEDS: FERROUS SULFATE 300 MG/5 ML LIQUID UDCUP NG SCH ×2 (09:54→17:26)
[2016-11-02] MEDS: MULTIVITAMINS WITH MINERALS, THERAPEUTIC TABLET PO SCH (09:55)
[2016-11-02] MEDS: CHOLECALCIFEROL (VIT D3) 1,000 UNITS TABLET PO SCH (09:55)
[2016-11-02] MEDS: MEMANTINE HCL 5 MG TABLET PO SCH (09:55)
[2016-11-02] MEDS: LORazepam 1 MG TABLET PO SCH (09:55)
[2016-11-02] MEDS ORDERED: ACETAMINOPHEN 650 MG/20.3 ML SOLUTION UDCUP NG PRN (11:15)
[2016-11-02 12:03] VITALS: BP 114/60
[2016-11-02 16:51] VITALS: BP 101/53
[2016-11-02] MEDS: AMIODARONE HCL 200 MG TABLET NG SCH ×2 (17:26→20:05)
[2016-11-02 19:17] VITALS: BP 104/59
[2016-11-02] MEDS: LORazepam 1 MG TABLET NG SCH (20:05)
[2016-11-02 23:50] VITALS: BP 108/52
[2016-11-03] VITALS (17 sets, daily range): BP systolic 93–138; BP diastolic 46–98
[2016-11-03 01:57] LABS: GLUCOSE,POINT OF CARE 87 MG/DL (70-110)
[2016-11-03 02:41] LABS: GLUCOSE,POINT OF CARE 104 MG/DL (70-110)
[2016-11-03] MEDS: PIPERACILLIN SODIUM/TAZOBACTAM 2.25 GM in DEXTROSE 5%-WATER 50 ML IV SCH (03:40)
[2016-11-03] MEDS: LANSOPRAZOLE 30 MG SOLUBLE TABLET NG SCH (05:39)
[2016-11-03 07:05] LABS: HEMATOCRIT 23.8 % (41-53); HEMOGLOBIN 7.5 g/dL (13.5-17.5); MEAN CORPUSCULAR HEMOGLOBIN 30.5 pg (26.0-34.0); MEAN CORPUSCULAR HGB CONC 31.5 G/dL (31.0-37.0); MEAN CORPUSCULAR VOLUME 97 fL (80-100); PLATELET COUNT (AUTO) 165 K/uL (150-450); RED BLOOD CELL COUNT(AUTO) 2.46 MIL/uL (4.50-5.90); RED CELL DISTRIBUTION WIDTH 14.2 % (11.5-14.5)
[2016-11-03 07:22] LABS: WHITE BLOOD COUNT (AUTO) 21.5 K/uL (4.5-11.0)
[2016-11-03 07:38] LABS: ALANINE AMINOTRANSFERASE 21 U/L (12-78); ALBUMIN 2.1 g/dL (3.4-5.0); ANION GAP 6 mmol/L (8-16); ASPARTATE AMINOTRANSFERASE 29 U/L (15-37); BILIRUBIN,TOTAL 0.3 mg/dL (0.1-1.0); CALCIUM, TOTAL 8.5 mg/dL (8.8-10.5); CARBON DIOXIDE 29 mmol/L (22-29); CHLORIDE 106 mmol/L (98-107); CREATININE 0.94 mg/dL (0.60-1.30); GLOMERULAR FILTR. RATE CALC > 60 mL/min (>60); SODIUM SERUM 141 mmol/L (136-145); TOTAL PROTEIN, SERUM 6.5 g/dL (6.4-8.2); UREA NITROGEN, BLOOD 30 mg/dL (7-18)
[2016-11-03 08:06] LABS: BAND NEUTROPHILS % (MANUAL) 3 % (1-5); LYMPHOCYTES % (MANUAL) 19 % (22-44); TOTAL CELLS COUNTED 100
[2016-11-03 08:07] LABS: RBC MORPHOLOGY COMMENT NORMAL RBC MORPH
[2016-11-03] MEDS: OXYGEN THERAPY IH SCH ×2 (08:52→20:34)
[2016-11-03] MEDS: LORazepam 1 MG TABLET NG SCH ×2 (09:00→21:00)
[2016-11-03] MEDS: AMIODARONE HCL 200 MG TABLET NG SCH ×2 (09:00→21:00)
[2016-11-03] MEDS: ALBUTEROL SULFATE 2.5 MG/0.5 ML NEB SOLUTION NEB SCH ×4 (09:00→20:34)
[2016-11-03] MEDS: IPRATROPIUM BROMIDE 0.5 MG/2.5 ML NEB SOLUTION NEB SCH ×4 (09:00→20:34)
[2016-11-03] MEDS ORDERED: FUROSEMIDE 20 MG/2 ML VIAL IVP ONE (09:30)
[2016-11-03] MEDS: FERROUS SULFATE 300 MG/5 ML LIQUID UDCUP NG SCH ×2 (10:13→18:13)
[2016-11-03] MEDS: MULTIVITAMINS WITH MINERALS, THERAPEUTIC 15 ML UDCUP NG SCH (10:14)
[2016-11-03] MEDS: MEMANTINE HCL 5 MG TABLET NG SCH (10:15)
[2016-11-03] MEDS: CHOLECALCIFEROL (VIT D3) 1,000 UNITS TABLET NG SCH (10:16)
[2016-11-03] MEDS: PIPERACILLIN/TAZO 3.375 GM/D5W 50 ML IV SCH ×3 (10:41→22:24)
[2016-11-03] MEDS ORDERED: SODIUM CHLORIDE 0.9% 250 ML IV ONE ×2 (11:19→17:41)
[2016-11-03] MEDS ORDERED: AMIODARONE HCL 200 MG TABLET PO ONE (13:30)
[2016-11-03] MEDS ORDERED: PEG 3350/NA SULF,BICARB,CL/KCL 4000 ML SOLUTION NG ONE (16:00)
[2016-11-04] MEDS: PIPERACILLIN/TAZO 3.375 GM/D5W 50 ML IV SCH ×4 (03:42→21:17)
[2016-11-04 05:30] VITALS: BP 124/65
[2016-11-04] MEDS: LANSOPRAZOLE 30 MG SOLUBLE TABLET NG SCH (05:58)
[2016-11-04 06:56] LABS: BASOPHILS % (AUTO) 0.2 % (0.0-2.0); EOSINOPHILS % (AUTO) 1.3 % (1.0-6.0); HEMATOCRIT 33.5 % (41-53); LYMPHOCYTES # (AUTO) 0.9 K/uL (1.0-4.8); LYMPHOCYTES % (AUTO) 12.7 % (22.0-44.0); MEAN CORPUSCULAR HEMOGLOBIN 30.3 pg (26.0-34.0); MEAN CORPUSCULAR HGB CONC 32.9 G/dL (31.0-37.0); MEAN CORPUSCULAR VOLUME 92 fL (80-100); MONOCYTES # (AUTO) 0.8 K/uL (0.1-1.0); MONOCYTES % (AUTO) 11.5 % (2.0-9.0); NEUTROPHILS # (AUTO) 5.4 K/uL (1.8-7.7); NEUTROPHILS % (AUTO) 74.3 % (40.0-70.0); PLATELET COUNT (AUTO) 181 K/uL (150-450); RED BLOOD CELL COUNT(AUTO) 3.64 MIL/uL (4.50-5.90); RED CELL DISTRIBUTION WIDTH 19.2 % (11.5-14.5); WHITE BLOOD COUNT (AUTO) 7.3 K/uL (4.5-11.0)
[2016-11-04 07:20] VITALS: BP 118/60
[2016-11-04] MEDS ORDERED: SODIUM CHLORIDE 0.9% 1,000 ML IV ONE ×2 (07:21→08:00)
[2016-11-04] MEDS: OXYGEN THERAPY IH SCH ×2 (07:56→21:16)
[2016-11-04 08:32] LABS: GLUCOSE,POINT OF CARE 97 MG/DL (70-110)
[2016-11-04] MEDS: ALBUTEROL SULFATE 2.5 MG/0.5 ML NEB SOLUTION NEB SCH ×4 (08:34→21:55)
[2016-11-04] MEDS: IPRATROPIUM BROMIDE 0.5 MG/2.5 ML NEB SOLUTION NEB SCH ×4 (08:34→21:55)
[2016-11-04 08:45] LABS: RBC MORPHOLOGY COMMENT ABNORMAL RBC MORPH
[2016-11-04] MEDS: LORazepam 1 MG TABLET NG SCH ×2 (09:00→21:16)
[2016-11-04] MEDS: AMIODARONE HCL 200 MG TABLET NG SCH ×2 (09:00→21:00)
[2016-11-04 10:48] VITALS: BP 115/63
[2016-11-04 12:00] VITALS: BP 110/60
[2016-11-04] MEDS: CHOLECALCIFEROL (VIT D3) 1,000 UNITS TABLET NG SCH (13:37)
[2016-11-04] MEDS: MEMANTINE HCL 5 MG TABLET NG SCH (13:37)
[2016-11-04] MEDS: MULTIVITAMINS WITH MINERALS, THERAPEUTIC 15 ML UDCUP NG SCH (13:37)
[2016-11-04] MEDS: FERROUS SULFATE 300 MG/5 ML LIQUID UDCUP NG SCH ×2 (13:37→17:52)
[2016-11-04 16:02] VITALS: BP 116/56
[2016-11-04 19:26] VITALS: BP 158/84
[2016-11-04] MEDS ORDERED: PROPOFOL 1% 20 ML VIAL IVP ONE (21:11)
[2016-11-04] MEDS ORDERED: LIDOCAINE HCL/PF 2% 5 ML VIAL IM ONE (21:11)
[2016-11-05] VITALS: BP 113/79
[2016-11-05 04:36] VITALS: BP 101/57
[2016-11-05] MEDS: PIPERACILLIN/TAZO 3.375 GM/D5W 50 ML IV SCH ×4 (04:54→21:33)
[2016-11-05] MEDS: LANSOPRAZOLE 30 MG SOLUBLE TABLET NG SCH (06:30)
[2016-11-05 07:47] VITALS: BP 115/53
[2016-11-05] MEDS: FERROUS SULFATE 300 MG/5 ML LIQUID UDCUP NG SCH ×2 (08:00→18:39)
[2016-11-05] MEDS: LORazepam 1 MG TABLET NG SCH ×2 (08:57→20:43)
[2016-11-05] MEDS: AMIODARONE HCL 200 MG TABLET NG SCH (08:58)
[2016-11-05] MEDS: MULTIVITAMINS WITH MINERALS, THERAPEUTIC 15 ML UDCUP NG SCH (08:58)
[2016-11-05] MEDS: MEMANTINE HCL 5 MG TABLET NG SCH (08:58)
[2016-11-05] MEDS: CHOLECALCIFEROL (VIT D3) 1,000 UNITS TABLET NG SCH (08:58)
[2016-11-05] MEDS ORDERED: SODIUM CHLORIDE 0.9% 250 ML IV ONE (09:02)
[2016-11-05] MEDS: OXYGEN THERAPY IH SCH ×2 (09:08→21:12)
[2016-11-05] MEDS: ALBUTEROL SULFATE 2.5 MG/0.5 ML NEB SOLUTION NEB SCH ×4 (09:31→21:12)
[2016-11-05] MEDS: IPRATROPIUM BROMIDE 0.5 MG/2.5 ML NEB SOLUTION NEB SCH ×4 (09:31→21:12)
[2016-11-05] MEDS ORDERED: SODIUM CHLORIDE 0.9% 1,000 ML IV ONE (11:26)
[2016-11-05] MEDS ORDERED: HYDROmorphone 2 MG/ML SYRINGE IVP PRN (12:45)
[2016-11-05] MEDS ORDERED: MEPERIDINE-PF 25 MG/ML SYRINGE IVP PRN (12:45)
[2016-11-05] MEDS ORDERED: FentaNYL CITRATE-PF 100 MCG/2 ML VIAL IVP PRN (12:45)
[2016-11-05 13:52] VITALS: BP 125/63
[2016-11-05 17:13] VITALS: BP 114/57
[2016-11-05 19:38] VITALS: BP 136/69
[2016-11-05] MEDS ORDERED: LIDOCAINE HCL/PF 2% 5 ML VIAL IM ONE (20:55)
[2016-11-05] MEDS ORDERED: PROPOFOL 1% 20 ML VIAL IVP ONE (20:55)
[2016-11-06] VITALS (7 sets, daily range): BP systolic 112–153; BP diastolic 52–93
[2016-11-06] MEDS: PIPERACILLIN/TAZO 3.375 GM/D5W 50 ML IV SCH ×4 (04:24→21:20)
[2016-11-06] MEDS: LANSOPRAZOLE 30 MG SOLUBLE TABLET NG SCH (05:56)
[2016-11-06 06:12] LABS: ALANINE AMINOTRANSFERASE 16 U/L (12-78); ALBUMIN 1.8 g/dL (3.4-5.0); ANION GAP 9 mmol/L (8-16); ASPARTATE AMINOTRANSFERASE 17 U/L (15-37); BILIRUBIN,TOTAL 0.6 mg/dL (0.1-1.0); CALCIUM, TOTAL 8.1 mg/dL (8.8-10.5); CARBON DIOXIDE 24 mmol/L (22-29); CHLORIDE 110 mmol/L (98-107); CREATININE 0.83 mg/dL (0.60-1.30); GLOMERULAR FILTR. RATE CALC > 60 mL/min (>60); POTASSIUM 3.9 mmol/L (3.5-5.1); SODIUM SERUM 143 mmol/L (136-145); UREA NITROGEN, BLOOD 22 mg/dL (7-18)
[2016-11-06 06:46] LABS: BASOPHILS % (AUTO) 0.3 % (0.0-2.0); EOSINOPHILS % (AUTO) 1.3 % (1.0-6.0); HEMATOCRIT 29.2 % (41-53); HEMOGLOBIN 9.5 g/dL (13.5-17.5); LYMPHOCYTES # (AUTO) 1.1 K/uL (1.0-4.8); LYMPHOCYTES % (AUTO) 12.8 % (22.0-44.0); MEAN CORPUSCULAR HEMOGLOBIN 30.3 pg (26.0-34.0); MEAN CORPUSCULAR HGB CONC 32.7 G/dL (31.0-37.0); MEAN CORPUSCULAR VOLUME 93 fL (80-100); MONOCYTES # (AUTO) 0.7 K/uL (0.1-1.0); MONOCYTES % (AUTO) 7.8 % (2.0-9.0); NEUTROPHILS # (AUTO) 6.7 K/uL (1.8-7.7); NEUTROPHILS % (AUTO) 77.8 % (40.0-70.0); PLATELET COUNT (AUTO) 174 K/uL (150-450); RED BLOOD CELL COUNT(AUTO) 3.15 MIL/uL (4.50-5.90); RED CELL DISTRIBUTION WIDTH 18.3 % (11.5-14.5); WHITE BLOOD COUNT (AUTO) 8.6 K/uL (4.5-11.0)
[2016-11-06] MEDS: FERROUS SULFATE 300 MG/5 ML LIQUID UDCUP NG SCH ×2 (07:51→18:00)
[2016-11-06] MEDS: MEMANTINE HCL 5 MG TABLET NG SCH (07:51)
[2016-11-06] MEDS: MULTIVITAMINS WITH MINERALS, THERAPEUTIC 15 ML UDCUP NG SCH (07:51)
[2016-11-06] MEDS: ALBUTEROL SULFATE 2.5 MG/0.5 ML NEB SOLUTION NEB SCH ×4 (07:55→20:16)
[2016-11-06] MEDS: IPRATROPIUM BROMIDE 0.5 MG/2.5 ML NEB SOLUTION NEB SCH ×4 (07:55→20:16)
[2016-11-06] MEDS: POVIDONE-IODINE 10% 120 ML SOLUTION TP SCH (07:57)
[2016-11-06] MEDS: HYDROGEN PEROXIDE 473 ML SOLUTION TP SCH (07:57)
[2016-11-06] MEDS: LORazepam 1 MG TABLET NG SCH ×2 (07:57→20:53)
[2016-11-06] MEDS: CHOLECALCIFEROL (VIT D3) 1,000 UNITS TABLET NG SCH (07:57)
[2016-11-06] MEDS: AMIODARONE HCL 200 MG TABLET NG SCH (07:58)
[2016-11-06] MEDS: OXYGEN THERAPY IH SCH ×2 (07:59→20:00)
[2016-11-06] MEDS ORDERED: HYDROGEN PEROXIDE 473 ML SOLUTION TP SCH (09:00)
[2016-11-06] MEDS ORDERED: POVIDONE-IODINE 10% 120 ML SOLUTION TP SCH (09:00)
[2016-11-06 12:25] LABS: RBC MORPHOLOGY COMMENT ABNORMAL RBC MORPH
[2016-11-07] MEDS: PIPERACILLIN/TAZO 3.375 GM/D5W 50 ML IV SCH ×4 (03:43→22:47)
[2016-11-07 04:00] VITALS: BP 126/64
[2016-11-07] MEDS: LANSOPRAZOLE 30 MG SOLUBLE TABLET NG SCH (06:29)
[2016-11-07 07:25] VITALS: BP 124/66
[2016-11-07] MEDS: IPRATROPIUM BROMIDE 0.5 MG/2.5 ML NEB SOLUTION NEB SCH ×4 (07:49→20:21)
[2016-11-07] MEDS: ALBUTEROL SULFATE 2.5 MG/0.5 ML NEB SOLUTION NEB SCH ×4 (07:49→20:21)
[2016-11-07] MEDS: MEMANTINE HCL 5 MG TABLET NG SCH (08:57)
[2016-11-07] MEDS: LORazepam 1 MG TABLET NG SCH ×2 (08:57→21:05)
[2016-11-07] MEDS: FERROUS SULFATE 300 MG/5 ML LIQUID UDCUP NG SCH ×2 (08:58→17:27)
[2016-11-07] MEDS: CHOLECALCIFEROL (VIT D3) 1,000 UNITS TABLET NG SCH (08:58)
[2016-11-07] MEDS: MULTIVITAMINS WITH MINERALS, THERAPEUTIC 15 ML UDCUP NG SCH (08:58)
[2016-11-07] MEDS: OXYGEN THERAPY IH SCH ×2 (08:59→20:00)
[2016-11-07] MEDS: AMIODARONE HCL 200 MG TABLET NG SCH (08:59)
[2016-11-07 11:47] VITALS: BP 112/60
[2016-11-07] MEDS: POVIDONE-IODINE 10% 120 ML SOLUTION TP SCH (12:30)
[2016-11-07] MEDS: HYDROGEN PEROXIDE 473 ML SOLUTION TP SCH (12:34)
[2016-11-07 15:55] VITALS: BP 126/65
[2016-11-07 19:16] VITALS: BP 128/73
[2016-11-07 23:40] VITALS: BP 132/81
[2016-11-08] MEDS: PIPERACILLIN/TAZO 3.375 GM/D5W 50 ML IV SCH ×4 (04:21→20:28)
[2016-11-08 04:26] LABS: GLUCOSE,POINT OF CARE 153 MG/DL (70-110)
[2016-11-08 04:32] LABS: GLUCOSE,POINT OF CARE 140 MG/DL (70-110)
[2016-11-08 04:32] LABS: GLUCOSE,POINT OF CARE 117 MG/DL (70-110)
[2016-11-08 04:32] LABS: GLUCOSE,POINT OF CARE 109 MG/DL (70-110)
[2016-11-08 04:32] LABS: GLUCOSE,POINT OF CARE 75 MG/DL (70-110)
[2016-11-08 04:32] LABS: GLUCOSE,POINT OF CARE 86 MG/DL (70-110)
[2016-11-08 04:32] LABS: GLUCOSE,POINT OF CARE 121 MG/DL (70-110)
[2016-11-08 04:32] LABS: GLUCOSE COMMENT 1 Received Meds; GLUCOSE,POINT OF CARE 76 MG/DL (70-110)
[2016-11-08 04:37] LABS: GLUCOSE,POINT OF CARE 89 MG/DL (70-110)
[2016-11-08 04:38] LABS: GLUCOSE COMMENT 1 Received Meds; GLUCOSE,POINT OF CARE 148 MG/DL (70-110)
[2016-11-08 04:38] LABS: GLUCOSE,POINT OF CARE 83 MG/DL (70-110)
[2016-11-08 04:38] LABS: GLUCOSE,POINT OF CARE 120 MG/DL (70-110)
[2016-11-08 04:38] LABS: GLUCOSE,POINT OF CARE 118 MG/DL (70-110)
[2016-11-08 04:38] LABS: GLUCOSE,POINT OF CARE 97 MG/DL (70-110)
[2016-11-08 04:38] LABS: GLUCOSE,POINT OF CARE 156 MG/DL (70-110)
[2016-11-08 04:38] LABS: GLUCOSE,POINT OF CARE 81 MG/DL (70-110)
[2016-11-08 04:38] LABS: GLUCOSE,POINT OF CARE 72 MG/DL (70-110)
[2016-11-08 04:38] LABS: GLUCOSE,POINT OF CARE 69 MG/DL (70-110)
[2016-11-08 04:42] LABS: GLUCOSE,POINT OF CARE 116 MG/DL (70-110)
[2016-11-08 04:42] LABS: GLUCOSE,POINT OF CARE 103 MG/DL (70-110)
[2016-11-08 04:45] VITALS: BP 130/79
[2016-11-08] MEDS: LANSOPRAZOLE 30 MG SOLUBLE TABLET NG SCH (05:58)
[2016-11-08 07:45] VITALS: BP 137/69
[2016-11-08] MEDS: OXYGEN THERAPY IH SCH ×2 (08:28→20:27)
[2016-11-08] MEDS: MULTIVITAMINS WITH MINERALS, THERAPEUTIC 15 ML UDCUP NG SCH (08:28)
[2016-11-08] MEDS: LORazepam 1 MG TABLET NG SCH ×2 (08:28→20:28)
[2016-11-08] MEDS: FERROUS SULFATE 300 MG/5 ML LIQUID UDCUP NG SCH ×2 (08:28→17:07)
[2016-11-08] MEDS: MEMANTINE HCL 5 MG TABLET NG SCH (08:28)
[2016-11-08] MEDS: AMIODARONE HCL 200 MG TABLET NG SCH (08:28)
[2016-11-08] MEDS: CHOLECALCIFEROL (VIT D3) 1,000 UNITS TABLET NG SCH (08:28)
[2016-11-08] MEDS: POVIDONE-IODINE 10% 120 ML SOLUTION TP SCH (08:29)
[2016-11-08] MEDS: HYDROGEN PEROXIDE 473 ML SOLUTION TP SCH (08:29)
[2016-11-08] MEDS: ALBUTEROL SULFATE 2.5 MG/0.5 ML NEB SOLUTION NEB SCH ×4 (08:41→21:10)
[2016-11-08] MEDS: IPRATROPIUM BROMIDE 0.5 MG/2.5 ML NEB SOLUTION NEB SCH ×4 (08:41→21:10)
[2016-11-08 12:07] VITALS: BP 136/61
[2016-11-08] MEDS ORDERED: SODIUM CHLORIDE 0.9% 250 ML IV ONE (15:38)
[2016-11-08 15:55] VITALS: BP 140/78
[2016-11-08 20:02] VITALS: BP 153/58
[2016-11-08 23:32] VITALS: BP 121/75
[2016-11-09] MEDS: PIPERACILLIN/TAZO 3.375 GM/D5W 50 ML IV SCH ×4 (04:15→22:25)
[2016-11-09 04:20] VITALS: BP 130/74
[2016-11-09] MEDS: LANSOPRAZOLE 30 MG SOLUBLE TABLET NG SCH (06:30)
[2016-11-09 07:25] VITALS: BP 145/78
[2016-11-09] MEDS: MEMANTINE HCL 5 MG TABLET NG SCH (09:04)
[2016-11-09] MEDS: LORazepam 1 MG TABLET NG SCH ×2 (09:04→20:05)
[2016-11-09] MEDS: MULTIVITAMINS WITH MINERALS, THERAPEUTIC 15 ML UDCUP NG SCH (09:04)
[2016-11-09] MEDS: POVIDONE-IODINE 10% 120 ML SOLUTION TP SCH (09:04)
[2016-11-09] MEDS: FERROUS SULFATE 300 MG/5 ML LIQUID UDCUP NG SCH ×2 (09:04→18:02)
[2016-11-09] MEDS: HYDROGEN PEROXIDE 473 ML SOLUTION TP SCH (09:04)
[2016-11-09] MEDS: AMIODARONE HCL 200 MG TABLET NG SCH (09:04)
[2016-11-09] MEDS: OXYGEN THERAPY IH SCH ×2 (09:04→20:05)
[2016-11-09] MEDS: CHOLECALCIFEROL (VIT D3) 1,000 UNITS TABLET NG SCH (09:04)
[2016-11-09] MEDS: ALBUTEROL SULFATE 2.5 MG/0.5 ML NEB SOLUTION NEB SCH ×4 (09:31→20:28)
[2016-11-09] MEDS: IPRATROPIUM BROMIDE 0.5 MG/2.5 ML NEB SOLUTION NEB SCH ×4 (09:31→20:28)
[2016-11-09] MEDS ORDERED: IOVERSOL 320 MG/ML 100 ML VIAL ONE (11:14)
[2016-11-09] MEDS ORDERED: SODIUM CHLORIDE 0.9% 100 ML ONE (11:14)
[2016-11-09 11:24] VITALS: BP 126/44
[2016-11-09 19:52] VITALS: BP 132/52
[2016-11-09 23:26] VITALS: BP 149/61
[2016-11-10] MEDS: INSULIN REGULAR, HUMAN 100 UNITS/ML SQ PRN (00:27)
[2016-11-10] MEDS: PIPERACILLIN/TAZO 3.375 GM/D5W 50 ML IV SCH ×2 (03:33→09:43)
[2016-11-10 04:22] LABS: GLUCOSE,POINT OF CARE 136 MG/DL (70-110)
[2016-11-10] MEDS: LANSOPRAZOLE 30 MG SOLUBLE TABLET NG SCH (05:40)
[2016-11-10 06:20] VITALS: BP 138/67
[2016-11-10 06:42] LABS: GLUCOSE,POINT OF CARE 137 MG/DL (70-110)
[2016-11-10 06:58] VITALS: BP 127/63
[2016-11-10] MEDS: HYDROGEN PEROXIDE 473 ML SOLUTION TP SCH (09:00)
[2016-11-10] MEDS: IPRATROPIUM BROMIDE 0.5 MG/2.5 ML NEB SOLUTION NEB SCH ×4 (09:15→20:44)
[2016-11-10] MEDS: ALBUTEROL SULFATE 2.5 MG/0.5 ML NEB SOLUTION NEB SCH ×4 (09:16→20:45)
[2016-11-10] MEDS: FERROUS SULFATE 300 MG/5 ML LIQUID UDCUP NG SCH (09:39)
[2016-11-10] MEDS: LORazepam 1 MG TABLET NG SCH ×2 (09:39→20:43)
[2016-11-10] MEDS: CHOLECALCIFEROL (VIT D3) 1,000 UNITS TABLET NG SCH (09:39)
[2016-11-10] MEDS: MULTIVITAMINS WITH MINERALS, THERAPEUTIC 15 ML UDCUP NG SCH (09:40)
[2016-11-10] MEDS: MEMANTINE HCL 5 MG TABLET NG SCH (09:40)
[2016-11-10] MEDS: POVIDONE-IODINE 10% 120 ML SOLUTION TP SCH (09:42)
[2016-11-10] MEDS: AMIODARONE HCL 200 MG TABLET NG SCH (09:42)
[2016-11-10] MEDS: OXYGEN THERAPY IH SCH (09:43)
[2016-11-10 11:13] VITALS: BP 102/54
[2016-11-10 15:00] VITALS: BP 117/69
[2016-11-10 19:43] VITALS: BP 150/69
[2016-11-10 23:25] VITALS: BP 128/75
[2016-11-11 04:55] VITALS: BP 123/69
[2016-11-11 06:04] LABS: BASOPHILS % (AUTO) 0.2 % (0.0-2.0); EOSINOPHILS % (AUTO) 1.2 % (1.0-6.0); HEMATOCRIT 38.3 % (41-53); HEMOGLOBIN 12.3 g/dL (13.5-17.5); LYMPHOCYTES # (AUTO) 1.6 K/uL (1.0-4.8); LYMPHOCYTES % (AUTO) 15.8 % (22.0-44.0); MEAN CORPUSCULAR HEMOGLOBIN 30.1 pg (26.0-34.0); MEAN CORPUSCULAR HGB CONC 32.1 G/dL (31.0-37.0); MEAN CORPUSCULAR VOLUME 94 fL (80-100); MONOCYTES # (AUTO) 0.9 K/uL (0.1-1.0); MONOCYTES % (AUTO) 8.8 % (2.0-9.0); NEUTROPHILS # (AUTO) 7.4 K/uL (1.8-7.7); PLATELET COUNT (AUTO) 170 K/uL (150-450); RED BLOOD CELL COUNT(AUTO) 4.09 MIL/uL (4.50-5.90); RED CELL DISTRIBUTION WIDTH 17.9 % (11.5-14.5)
[2016-11-11 07:00] VITALS: BP 137/56
[2016-11-11] MEDS: IPRATROPIUM BROMIDE 0.5 MG/2.5 ML NEB SOLUTION NEB SCH ×4 (07:55→20:38)
[2016-11-11] MEDS: ALBUTEROL SULFATE 2.5 MG/0.5 ML NEB SOLUTION NEB SCH ×4 (07:55→20:38)
[2016-11-11] MEDS: LORazepam 1 MG TABLET NG SCH ×2 (08:52→20:32)
[2016-11-11 11:16] VITALS: BP 146/80
[2016-11-11 11:50] LABS: RBC MORPHOLOGY COMMENT ABNORMAL RBC MORPH
[2016-11-11 16:41] VITALS: BP 124/69
[2016-11-11 20:01] VITALS: BP 118/68
[2016-11-12] VITALS: BP 140/85
[2016-11-12 07:15] VITALS: BP 129/66
[2016-11-12] MEDS: IPRATROPIUM BROMIDE 0.5 MG/2.5 ML NEB SOLUTION NEB SCH ×4 (09:46→21:07)
[2016-11-12] MEDS: ALBUTEROL SULFATE 2.5 MG/0.5 ML NEB SOLUTION NEB SCH ×4 (09:46→21:07)
[2016-11-12] MEDS: LORazepam 1 MG TABLET NG SCH ×2 (09:51→19:56)
[2016-11-12 15:17] VITALS: BP 109/58
[2016-11-12 20:12] LABS: GLUCOSE,POINT OF CARE 105 MG/DL (70-110)
[2016-11-12 20:16] LABS: GLUCOSE,POINT OF CARE 114 MG/DL (70-110)
[2016-11-12 20:20] VITALS: BP 133/72
[2016-11-12 20:22] LABS: GLUCOSE,POINT OF CARE 121 MG/DL (70-110)
[2016-11-12 20:22] LABS: GLUCOSE,POINT OF CARE 110 MG/DL (70-110)
[2016-11-13] VITALS (7 sets, daily range): BP systolic 117–138; BP diastolic 52–78
[2016-11-13] MEDS: LORazepam 1 MG TABLET NG SCH ×2 (08:53→20:47)
[2016-11-13] MEDS: IPRATROPIUM BROMIDE 0.5 MG/2.5 ML NEB SOLUTION NEB SCH ×4 (10:08→21:54)
[2016-11-13] MEDS: ALBUTEROL SULFATE 2.5 MG/0.5 ML NEB SOLUTION NEB SCH ×4 (10:08→21:54)
[2016-11-13] MEDS ORDERED: BISACODYL 10 MG RECTAL RECTAL SUPPOSITORY PR PRN (13:00)
[2016-11-13] MEDS ORDERED: MAGNESIUM HYDROXIDE SUSPENSION 30 ML UDCUP GT PRN (13:00)
[2016-11-13] MEDS: DOCUSATE SODIUM 100 MG CAPSULE GT SCH ×2 (15:21→20:47)
[2016-11-14 03:43] VITALS: BP 112/67
[2016-11-14 07:25] VITALS: BP 127/75
[2016-11-14] MEDS: DOCUSATE SODIUM 100 MG CAPSULE GT SCH (08:11)
[2016-11-14] MEDS: LORazepam 1 MG TABLET NG SCH (08:11)
[2016-11-14] MEDS: ALBUTEROL SULFATE 2.5 MG/0.5 ML NEB SOLUTION NEB SCH ×2 (10:11→13:20)
[2016-11-14] MEDS: IPRATROPIUM BROMIDE 0.5 MG/2.5 ML NEB SOLUTION NEB SCH ×2 (10:11→13:20)
[2016-11-14 11:38] VITALS: BP 135/60
[2016-11-19 16:48] LABS: GLUCOSE,POINT OF CARE 114 MG/DL (70-110)
[2016-11-19 16:52] LABS: GLUCOSE,POINT OF CARE 95 MG/DL (70-110)
[2016-11-19 16:53] LABS: GLUCOSE,POINT OF CARE 122 MG/DL (70-110)
[2016-11-19 16:53] LABS: GLUCOSE,POINT OF CARE 118 MG/DL (70-110)
[2016-11-19 16:53] LABS: GLUCOSE COMMENT 1 Received Meds; GLUCOSE,POINT OF CARE 118 MG/DL (70-110)
[2016-11-19 16:53] LABS: GLUCOSE,POINT OF CARE 146 MG/DL (70-110)
[2016-11-19 16:53] LABS: GLUCOSE,POINT OF CARE 89 MG/DL (70-110)
[2016-11-19 16:53] LABS: GLUCOSE,POINT OF CARE 82 MG/DL (70-110)
== END 2016-11-14 14:15 | DRG 871 ==
LOC: EMS 15:41 → UNDOADMIN 10-16 12:30 → AHU 10-16 12:30 → 5S 10-16 16:17 → 6N 11-10 14:40
PROVIDERS: ADMIT Internal Medicine; ATTEND Internal Medicine
PROC: 0W993ZZ Drainage of Right Pleural Cavity, Percutaneous Approach (ICD-10-PCS; principal; 2016-10-25)
PROC: 0F903ZZ Drainage of Liver, Percutaneous Approach (ICD-10-PCS; 2016-10-29)
PROC: 5A09457 Assistance with Respiratory Ventilation, 24-96 Consecutive Hours, Continuous Positive Airway Pressure (ICD-10-PCS; 2016-10-31)
PROC: 30233N1 Transfusion of Nonautologous Red Blood Cells into Peripheral Vein, Percutaneous Approach (ICD-10-PCS; 2016-11-03)
PROC: 0DJD8ZZ Inspection of Lower Intestinal Tract, Via Natural or Artificial Opening Endoscopic (ICD-10-PCS; 2016-11-04)
PROC: 0DH63UZ Insertion of Feeding Device into Stomach, Percutaneous Approach (ICD-10-PCS; 2016-11-05)
DX: A41.59 Other Gram-negative sepsis (principal); E43 Unspecified severe protein-calorie malnutrition; K75.0 Abscess of liver; J96.91 Respiratory failure, unspecified with hypoxia; J69.0 Pneumonitis due to inhalation of food and vomit; J44.0 Chronic obstructive pulmonary disease with (acute) lower respiratory infection; Z68.1 Body mass index [BMI] 19.9 or less, adult; E87.0 Hyperosmolality and hypernatremia; E87.1 Hypo-osmolality and hyponatremia; J90 Pleural effusion, not elsewhere classified; N17.9 Acute kidney failure, unspecified; I13.0 Hypertensive heart and chronic kidney disease with heart failure and stage 1 through stage 4 chronic kidney disease, or unspecified chronic kidney disease; D62 Acute posthemorrhagic anemia; J98.11 Atelectasis; R64 Cachexia; K56.41 Fecal impaction; N18.9 Chronic kidney disease, unspecified; I48.0 Paroxysmal atrial fibrillation; E83.42 Hypomagnesemia; K21.9 Gastro-esophageal reflux disease without esophagitis; E86.0 Dehydration; K64.8 Other hemorrhoids; F03.90 Unspecified dementia, unspecified severity, without behavioral disturbance, psychotic disturbance, mood disturbance, and anxiety; L89.322 Pressure ulcer of left buttock, stage 2; E87.6 Hypokalemia; R13.10 Dysphagia, unspecified; R62.7 Adult failure to thrive; Z51.5 Encounter for palliative care; R29.6 Repeated falls; I49.9 Cardiac arrhythmia, unspecified; E55.9 Vitamin D deficiency, unspecified; J44.9 Chronic obstructive pulmonary disease, unspecified; I50.9 Heart failure, unspecified; D50.9 Iron deficiency anemia, unspecified; Z79.899 Other long term (current) drug therapy; Z74.01 Bed confinement status; Z86.73 Personal history of transient ischemic attack (TIA), and cerebral infarction without residual deficits
CPT/HCPCS: 32555; 36589; 51702; 70450; 71020; 71260; 72125; 74000; 74175; 74177; 76700; 76705; 76942; 77012; 82271; 82306; 82465; 82607; 82746; 82805; 82945; 82962; 83540; 83550; 83605; 83615; 83735; 83930; 83935; 83986; 84100; 84132; 84155; 84157; 84295; 84315; 85007; 85013; 85045; 86850; 86900; 86901; 86920; 87015; 87040; 87070; 87076; 87081; 87101; 87205; 88108; 89051; 92610; 93005; 93308; 94640; 94660; 94799; 96360; 96361; 96365; 97110; 97161; 97530; 99285; J0282; J0456; J0696; J1160; J1650; J1756; J1940; J1956; J2250; J2543; J2704; J3010; J3475; J3480; J3490; J7030; J7040; J7050; J7060; P9016; P9046